=== PATIENT | male | born 1975 | race Caucasian/White ===

== ENCOUNTER 2016-10-05 18:47 | Emergency (ER) | payer BC ==
[~2016-10-05] VITALS: Ht 193 cm; Wt 129.6 kg
[2016-10-05] MEDS ORDERED: ASPIRIN 325 MG TAB PO ONE (19:00)
[2016-10-05 19:29] LABS: BASO # 0.1 K/mm3 (0.0-0.2); BASO % 0.9 % (0.0-1.0); EOS # 0.3 K/mm3 (0.0-0.50); EOS % 3.7 % (0.0-3.0); LARGE UNSTAINED CELL # 0.1 K/mm3 (0.0-0.4); LARGE UNSTAINED CELL % 1.8 % (0.0-4.0); LYMPH # 2.5 K/mm3 (1.5-4.5); LYMPH % 32.1 % (24.0-44.0); MEAN CORPUSCULAR HEMOGLOBIN 30.1 pg (27.0-33.0); MEAN CORPUSCULAR VOLUME 83.6 fl (80.0-96.0); MONO # 0.4 K/mm3 (0.0-0.8); MONO % 5.2 % (0.0-5.0); NEUTROPHILS # 4.1 K/mm3 (1.8-7.7); NEUTROPHILS % 56.3 % (36.0-66.0); PLATELET COUNT, AUTOMATED 199 k/mm3 (150-450); RED CELL DISTRIBUTION WIDTH 12.6 % (11.5-14.5); WHITE BLOOD COUNT 7.3 K/mm3 (4.0-10.0)
[2016-10-05] MEDS ORDERED: MORPHINE 4 MG/ML 1ML SYRINGE IV ONE (19:30)
[2016-10-05 19:37] LABS: INR 0.89
--- NOTE | 2016-10-05 19:53 | REP ---
PA and lateral chest: There are no comparisons. The lung rowley are clear. The cardiac size is normal The boyd, mediastinum, and bony thorax are unremarkable. Impression: Negative PA and lateral chest. Signed by Walter Delgado MD 10/05/2016 07:44 P
[2016-10-05 19:59] LABS: ANION GAP 10 MEQ/L (8-16); BLOOD UREA NITROGEN 18 MG/DL (7-18); CALCIUM LEVEL 9.1 MG/DL (8.5-10.1); CARBON DIOXIDE LEVEL 26 MEQ/L (21-32); CHLORIDE LEVEL 103 MEQ/L (98-107); CREATININE FOR GFR 0.93 MG/DL (0.70-1.30); GLOMERULAR FILTRATION RATE > 60.0 (>60); GLUCOSE, FASTING 200 MG/DL (70-105); POTASSIUM SERUM 3.8 MEQ/L (3.5-5.1); SODIUM LEVEL 139 MEQ/L (136-145)
[2016-10-05] MEDS ORDERED: HEPARIN DRIP 25,000 UNITS in APPROPRIATE DILUENT 1 EA IV SCH (20:06)
[2016-10-05] MEDS ORDERED: CLOPIDOGREL 300 MG TAB (PLAVIX) PO STA (20:06)
[2016-10-05] MEDS ORDERED: HEPARIN SOD (PORCINE) 5000 UNITS/ML VIAL IV ONE (20:15)
[2016-10-05] MEDS ORDERED: ISOVUE-370 76% 100ML VIAL (Q9967) As Ordered ONE (20:32)
--- NOTE | 2016-10-05 21:30 | REPUSA ---
CLINICAL HISTORY: Chest pain. TECHNIQUE: CT chest with IV contrast. Total DLP 504.7 mGy*cm COMPARISON: No pertinent prior studies are available at this time. CT CHEST WITH CONTRAST: Pulmonary arteries: Patent, without emboli. Lungs: There is mild perihilar groundglass attenuation which is nonspecific but can be seen in patien ts with air trapping of reactive airways disease/asthma, atypical viral pneumonia, or pulmonary edema . No pneumothorax, consolidation, masses or effusion. Heart: Normal size. No significant effusion. Aorta: Normal caliber, without aneurysm or dissection. Mediastinum and boyd: Mild thickening of the hilar tissues without sophie lymphadenopathy. Bony thorax: No acute findings. Limited upper abdomen: No acute findings. IMPRESSION: 1. No evidence of pulmonary embolism. 2. Mild scattered regions of groundglass attenuation more pronounced in the upper lobes. The appearan ce is nonspecific but can be seen in patients with asthma, bronchitis, viral pneumonia or pulmonary e ankit (however the heart is not enlarged and there is no pleural effusion to suggest CHF).
[2016-10-05] MEDS ORDERED: MORPHINE 10 MG/ML 1ML VIAL IV ONE (22:30)
[2016-10-05 22:58] VITALS: BP 123/73
--- NOTE | 2016-10-06 21:31 | ECGEPIP ---
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
== END 2016-10-05 23:02 | disposition short-term general hospital (02) ==
LOC: M ED 18:47
DX: I21.4 Non-ST elevation (NSTEMI) myocardial infarction (principal)
CPT/HCPCS: 71020; 71275; 80048; 82550; 82553; 85025; 85610; 85730; 93005; 96374; 96375; 96376; 99285; Q9967